=== PATIENT | male | born 1980 | race Caucasian/White ===

== ENCOUNTER 2022-03-15 08:29 | Outpatient (CLI) | payer OTHER, BC, SELFPAY ==
[2022-03-15 10:40] LABS: Cholesterol* 161 mg/dL (90-199); Glucose* 97 mg/dL (60-115)
[2022-03-15 10:41] LABS: HDL Cholesterol* 46 mg/dL (>=40); LDL Cholesterol Calculated 98 mg/dL (<100); Triglycerides* 85 mg/dL (40-149)
== END 2022-03-15 08:30 | disposition home or self-care (01) ==
PROVIDERS: PCP Family Medicine; Visit Provider Family Medicine
DX: Z00.00 Encounter for general adult medical examination without abnormal findings (principal); Z13.6 Encounter for screening for cardiovascular disorders; Z13.1 Encounter for screening for diabetes mellitus
CPT/HCPCS: 80061; 82947

== ENCOUNTER 2023-03-20 07:38 | Outpatient (CLI) | payer OTHER, SELFPAY | END 2023-03-20 07:39 | disposition home or self-care (01) | LOC: NFLDREF 13:13 | PROVIDERS: PCP Family Medicine; Referring Provider Family Medicine; Visit Provider Family Medicine | DX: Z13.1 Encounter for screening for diabetes mellitus (principal); Z13.6 Encounter for screening for cardiovascular disorders | CPT/HCPCS: 80061; 82947 ==

== ENCOUNTER 2023-07-11 07:58 | Outpatient (CLI) | payer OTHER, SELFPAY ==
--- OUTSIDE RECORDS SUMMARY | 2023-07-11 08:01 | XMS_ITS | Referral Summary ---
Author Name Unknown Organization [facility] Address [address] [place] [address] Care Team Providers Care Parts Representative Name Role Phone Elsewhere, Pcp Primary Care Provider Unavailabl e Source Comments Patient records contain information from all sites at [facility]. For routine questions regarding patient records, call [phone] during business hours, M-F 8:00 AM - 5:00 PM Central Time. Record requests for emergency care only can be directed to [phone] at any time.[facility] Allergies No known active allergies Medications Medication Sig Dispensed Refills Start Date End Date Status amoxicillin (AMOXIL) 500 mg capsule Take 4 caps (2000 mg) 1 hour prior to dental procedure. 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 GI recommended Zofran (Ondansetron) at onset of symptoms. However hasn't used. Last was January 2018. He has used breathing exercises to stop episodes. Deficiency Vitamin D 10/09/2018 Resolved Problems Problem Noted Date Diagnosed Date Resolved Date Mitral Valve Prolapse 07/17/20182018 Social History Tobacco Use Types Packs/Day Years Used Date Smoking Tobacco: Never Smokeless Tobacco: Never Tobacco Cessation:Counseling Given: Not Answered Alcohol Use Standard Drinks/Week Comments Yes 0 (1 standard drink = 0.6 oz pur e alcohol) PHQ-2 Answer Date Recorded PHQ-2 Score 0 11/16/2018 Nutrition Answer Date Recorded Nutrition: EVOO Fat Source Unknown 08/21 Nutrition: Servings of Fruits/Vegetables per Day Not on file 08/21/2020 Dental Answer Date Recorded Dental: Regular Dentist Unknown 08/23/19 21 Sex and Gender Information Value Date Recorded Sex Assigned at Male 02/11/2018 9:02 AM CDT Gender Identity Male 02/11/2018 9:02 AM CDT Sexual Orientation Straight 02/11/2018 9: 02 AM CDT Last Filed Vital Signs Vital Sign Reading Time Taken Comments Blood Pressure 104/98 05/04/2021 7:48 AM GENERAL MERCHANDISE SALESPERSON Pulse 94 05/04/2021 7:48 AM GENERAL MERCHANDISE SALESPERSON Temperature 36.8 ??C (98.2 ??F) 10/17/2018 12:00 PM C DT Respiratory Rate 14 10/17/2018 12:00 PM CDT Oxygen Saturation 99% 04/12/2020 3:52 PM CDT Inhaled Oxygen Concentration - - Weight 69.2 kg (152 lb 8.9 oz) 04/12/2020 3:52 P M CDT Height 180.6 cm (5' 11.1) 04/12/2020 3:52 PM CD T Body Mass Index 21.22 04/12/2020 3:52 PM CDT Plan of Treatment Not on file Medical Devices Implanted Type Area Gunstock Repairer Device Identifier Shelf Expiration Date Model / Serial / Lot Rng Anulo Mtrl Flx 63 - [id number] - [id number] Implanted:Qty : 1 on 10/12/2018 at [facility] Cardiac Valve Prosthesis N/A: Heart Medtronic 04/14/2023 [id number] / [id number] / Description:Mitral valve pos ition Care Teams Parts Representative Relationship Specialty Start Date End Date Elsewhere, Pcp PCP - General Internal Medicine 10/15/18
--- OUTSIDE RECORDS SUMMARY | 2023-07-11 08:01 | XMS_ITS | Clinical Summary ---
Author Name Unknown Organization [facility] Address [address] [place] [address] Care Team Providers Care Clay Plant Treater Name Role Phone Elsewhere, Pcp Primary Care Provider Unavailabl e Source Comments Patient records contain information from all sites at [facility]. For routine questions regarding patient records, call [phone] during business hours, M-F 8:00 AM - 5:00 PM Central Time. Record requests for emergency care only can be directed to [phone] at any time.[facility] Allergies No known active allergies Medications Medication [...] Date Resolved Date Mitral Valve Prolapse 07/17/20182018 Family History Medical History Relation Name Comments Migraines Mother Diabetes Mother's Sister Tatiana Relation Name Status Comments Mother Mother's Sister Tatiana Social History Tobacco Use Types Packs/Day Years [...] Comments Blood Pressure 104/98 05/04/2021 7:48 AM GRAFFITI CLEANER Pulse 94 05/04/2021 7:48 AM GRAFFITI CLEANER Temperature 36.8 ??C (98.2 ??F) 10/17/2018 12:00 PM C DT Respiratory Rate 14 10/17/2018 12:00 PM CDT Oxygen Saturation 99% 04/12/2020 3:52 PM CDT Inhaled Oxygen Concentration - - Weight 69.2 kg (152 lb 8.9 oz) 04/12/2020 3:52 P M CDT Height 180.6 cm (5' 11.1) 04/12/2020 3:52 PM CD T Body Mass Index 21.22 04/12/2020 3:52 PM CDT Plan of Treatment Health Maintenance Due Date Last Done Comments HIV Screening 1982 Hepatitis B Vaccines (1 of 3 - 3-dose series) 1982 Hepatitis C Screening 1982 Depression Screening (Annual PHQ-2) 06/16/2023 Lipid (Cholesterol) Screening 05/28/2027 05/28/2022, 05/03/2021, 04/12/2020, Additional history exists DTaP,Tdap,and Td Vaccines (2 - Td or Tdap) 02/13/2030 02/14/2020 COVID-19 Vaccine Completed 04/15/2023, , 05/31/2021, Additional history exists Influenza Vaccine Completed 04/15/2023, , 03/29/2021, Additional history exists HPV Vaccines Aged Out No longer eligi ble based on patient's age to complete this topic Pneumococcal vaccine (0-64 years) Aged Out No longer eligible based on patient's age to complete this topic Medical Devices Implanted Type Area Supervisor Laboratory Device Identifier Shelf Expiration Date Model / Serial / Lot Charleen Barrios Mtrl Flx 63 - [id number] - [id number] Implanted:Q[facility] : [facility] Card[facility] Valve Prosthesis N/A: Heart Medtronic 04/14/2023 [id number] / [id number] / Description:Mitral valve pos ition Care Teams Clay Plant Treater Relationship Specialty Start Date End Date Elsewhere, Pcp PCP - General Internal Medicine 10/15/18
--- OUTSIDE RECORDS SUMMARY | 2023-07-11 08:01 | XMS_ITS ---
Author Name Unknown Organization [facility] Address [address] [place] [address] Care Team Providers Care Leak Patcher Name Role Phone Unavailable Unavailable Unavailable Surgery Details Not on file Complications Check Surgery Details section. Procedure Estimated Blood Loss Check Surgery Details section. Procedure Findings Check Surgery Details section. Procedure Specimens Taken Check Surgery Details section.
== END 2023-07-11 07:59 | disposition home or self-care (01) ==
PROVIDERS: PCP Family Medicine; Visit Provider Internal Medicine
DX: I34.0 Nonrheumatic mitral (valve) insufficiency (principal); I07.1 Rheumatic tricuspid insufficiency; Z98.890 Other specified postprocedural states
CPT/HCPCS: 93306

== ENCOUNTER 2024-11-04 08:19 | Outpatient (CLI) | payer BC, SELFPAY | END 2024-11-04 08:20 | disposition home or self-care (01) | LOC: NFLDREF 11-07 20:51 | PROVIDERS: PCP Family Medicine; Referring Provider Family Medicine; Visit Provider Family Medicine | DX: E78.5 Hyperlipidemia, unspecified (principal) | CPT/HCPCS: 80061 ==